=== PATIENT | female | born 1990 | race Two or more races ===

== ENCOUNTER 2023-08-08 14:33 | Emergency (ER) | payer OTHER ==
[~2023-08-08] VITALS: Ht 154.9 cm; Wt 68.1 kg
[2023-08-08 15:12] VITALS: BP 118/77; PULSE 119; RESP 18; O2SAT 100
[2023-08-08] MEDS ORDERED: cefTRIAXone SOD 1,000 MG VL IM ONE (16:15)
[2023-08-08] MEDS ORDERED: DexAMETHasone SOD PHOS 10MG/1ML VIAL INJ IM ONE (16:15)
[2023-08-08] MEDS ORDERED: ALBUAER3 IN (17:20)
[2023-08-08] MEDS ORDERED: AZITTAB PO (17:20)
[2023-08-08] MEDS ORDERED: BENZ200C64 PO (17:20)
[2023-08-08] MEDS ORDERED: PRED20TA2 PO (17:20)
== END 2023-08-09 01:15 | disposition home or self-care (01) ==
LOC: ER 14:33
DX: J03.90 Acute tonsillitis, unspecified (principal); R50.9 Fever, unspecified; R05.9 Cough, unspecified